=== PATIENT | male | born 1955 | race Caucasian/White ===

== ENCOUNTER 2019-06-07 09:21 | Outpatient (CLI) | payer OTHER, SELFPAY ==
[2019-06-07 11:57] LABS: ALT 34 U/L (16-63); AST 18 U/L (15-37); Albumin 3.6 g/dL (3.4-5.0); Alkaline Phosphatase 147 U/L (46-116); Anion Gap 9.2 mmol/L (3-11); BUN 14 mg/dL (7-18); Bilirubin, Total 0.3 mg/dL (0.2-1.0); CO2 28.8 mmol/L (21.0-32.0); CREATININE 0.49 mg/dL (0.70-1.30); Calcium 8.8 mg/dL (8.5-10.1); Calculated LDL 89 mg/dL (<100); Chloride 105 mmol/L (98-107); Cholesterol 174 mg/dL (<200); Glucose 107 mg/dL (74-106); HDL Cholesterol 72 mg/dL (40-60); Potassium 4.4 mmol/L (3.5-5.1); Sodium 143 mmol/L (136-145); Total Protein 6.5 g/dL (6.4-8.2); Triglyceride 65 mg/dL (<150)
[2019-06-08 12:28] LABS: PSA, Screening 1.2 ng/mL (0.0-4.5)
== END 2019-06-07 09:41 ==
PROVIDERS: PCP Family Medicine; Visit Provider Family Medicine
DX: R73.9 Hyperglycemia, unspecified (principal); N40.0 Benign prostatic hyperplasia without lower urinary tract symptoms; Z12.5 Encounter for screening for malignant neoplasm of prostate; Z13.220 Encounter for screening for lipoid disorders
CPT/HCPCS: 36415; 80053; 80061; 84153

== ENCOUNTER 2020-05-22 09:26 | Outpatient (CLI) | payer OTHER, SELFPAY ==
[2020-05-22 12:35] LABS: Anion Gap 7.6 mmol/L (3-11); BUN 11 mg/dL (7-18); CO2 29.4 mmol/L (21.0-32.0); CREATININE 0.6 mg/dL (0.70-1.30); Calcium 9.4 mg/dL (8.5-10.1); Chloride 103 mmol/L (98-107); Glucose 109 mg/dL (74-106); Potassium 4.5 mmol/L (3.5-5.1); Sodium 140 mmol/L (136-145)
[2020-05-22 12:54] LABS: Hemoglobin A1C 5.9 % (<5.7)
== END 2020-05-22 09:27 | disposition home or self-care (01) ==
LOC: LOS 09:27
PROVIDERS: PCP Family Medicine; Visit Provider Family Medicine
DX: R73.9 Hyperglycemia, unspecified (principal)
CPT/HCPCS: 36415; 80048; 83036

== ENCOUNTER 2021-03-19 01:58 | Outpatient (CLI) | payer OTHER, SELFPAY ==
[2021-03-19 13:36] LABS: Source Nasal/Nares
[2021-03-19 19:27] LABS: COVID-19 PCR Negative (Negative)
== END 2021-03-19 01:59 | disposition home or self-care (01) ==
LOC: LBO 01:58
PROVIDERS: PCP Family Medicine; Visit Provider Surgery
DX: Z20.822 Contact with and (suspected) exposure to COVID-19 (principal); Z01.818 Encounter for other preprocedural examination
CPT/HCPCS: 87635

== ENCOUNTER 2021-03-21 06:04 | Day surgery (SDC) | payer OTHER, SELFPAY ==
--- NOTE | 2021-03-21 06:16 | W.ANESPRE ---
General Info Date of Service Date Performed: 03/21/21 Height: 5 ft 6 in Weight: 83.688 kg Body Mass Index (BMI): 29.7 Surgical Procedure: Operation Date: 03/21/21 07:40 Proposed Procedures Side Surgeon p Herniorrhaphy Inguinal w/Mesh Left Pilar Krueger MD Meds Allergies and Home Medications Allergies Allergy/AdvReac Type Severity Reaction Status Date / Time codeine AdvReac Intermediate NAUSEA Verified 03/21/21 06:36 Home Medication Medication Instructions Recorded cholecalciferol (vitamin D3) 1 tab PO DAILY 04/18/14 [Vitamin D3] vitamin B complex 1 tab PO DAILY 04/18/14 vitamin E 400 unit PO DAILY 04/18/14 zinc 50 mg PO DAILY 04/18/14 triamcinolone acetonide 15 gm TOPICAL BID #1 script 07/23/17 Current Visit Medications: Current Medications Generic Name Dose Route Start Last Admin Trade Name Freq PRN Reason Stop Dose Admin Acetaminophen 1,000 mg 03/21/21 06:00 Acetaminophen 500 Mg Tab PO 03/21/21 23:59 PREOP SONNY Celecoxib 200 mg 03/21/21 06:00 Celecoxib 200 Mg Cap PO 03/21/21 23:59 PREOP SONNY Gabapentin 600 mg 03/21/21 06:00 Gabapentin 300 Mg Cap PO 03/21/21 23:59 PREOP SONNY Ringer's Solution 1,000 mls @ 80 mls/hr 03/21/21 06:00 IV 04/19/21 23:59 INFUSION SONNY Cefazolin Sodium/Dextrose 2 gm in 50 mls @ 100 mls/hr 03/21/21 06:00 Ancef Duplex IVPB 03/21/21 23:59 PREOP SONNY IV Miscellaneous Supplies 1 each 03/21/21 06:00 Iv Access IV 04/19/21 23:59 DIRECTED SONNY Sodium Chloride 0 ml 03/21/21 06:00 Normal Saline Flush 10 Ml Syr IV 04/19/21 23:59 PRN PRN Sodium Chloride 0 ml 03/21/21 06:00 Normal Saline 10 Ml Vial IJ 04/19/21 23:59 DIRECTED PRN Sterile Water 0 ml 03/21/21 06:00 Water,Injection,Sterile 10 Ml Vial IJ 04/19/21 23:59 DIRECTED PRN PFSH Active Problems Active Problems: Problem Status Onset Code Left inguinal hernia K40.90 High blood sugar R73.9 Encounter for immunization Z23 Annual visit for general adult medical examination without abnormal findings Z00.00 Status post de Quervain's release surgery Z98.890 Status post repair of hydrocele Z98.890, Z87.438 Colon cancer screening Z12.11 Medical History Medical History De Quervain's fracture Tubular adenoma of colon (04/12/16) Surgical History Surgical History Colonoscopy - MAC (04/12/16) Hernia repair right inguinal hernia 05/2017 PROCEDURES EXCISION OF HYDROCELE, 2007 Release for de Quervain's tenosynovitis of hand 04/20/14; RIGHT Tobacco Smoking/Tobacco Use Status: Current every day Tobacco Type: cigarettes Tobacco: How many years used: 40 Passive smoking exposure: Yes Quit Status: considering quitting Second hand exposure: Yes Alcohol Alcohol Intake: current Alcohol intake frequency: a few times a week Alcohol type: beer and wine Substance Use Substance use: Occasionally Substance use type: marijuana Vital Signs and Lab Results Vital Signs Most Recent Vital Signs in EMR: Temp Pulse Resp BP Pulse Ox 37.3 C 92 H 16 124/82 94 03/21/21 06:42 03/21/21 06:42 03/21/21 06:42 03/21/21 06:42 03/21/21 06:42 Lab Results Blood Type / Crossmatch: No Data to Display Complete Blood Count: No Data to Display Complete Metabolic Panel: No Data to Display Liver Function Panel: No Data to Display Coagulation Panel: No Data to Display Cardiac Panel: No Data to Display Arterial Blood Gas: No Data to Display Venous Blood Gas: No Data to Display Pancreas Panel: No Data to Display Thyroid Panel: No Data to Display Infectious Disease: Coronavirus (COVID-19)(PCR) Negative (Negative) 03/19/21 11:35 03/19/21 Coronavirus 2019 Source Nasal/Nares 03/19/21 11:35 03/19/21 Blood Cultures: No Data to Display Toxicology Panel: No Data to Display Anesthesia Assessment and Plan Anesthesia History Personal History: No History of Anesthesia Complications Family History: No Family History of Anesthesia Complications Exercise Tolerance Exercise Tolerance: Metabolic Equivalents>4 (Hikes 2 x per day, elliptical 2x per week) Pertinent Negatives Pertinent Negatives: No Symptoms of GERD, No Major Cardiovascular Symptoms or Complaints, No Major Pulmonary Symptoms or Complaints and No History of CVA/TIA Cardiac & Pulmonary Exam Cardiac Exam: Normal S1/S2 Heart Sounds Pulmonary Exam: Clear Bilateral Breath Sounds Implantable Cardiac Device Does patient have a Pacemaker or an ICD?: No Airway Exam Known Difficult Airway: No Mallampati Class: 2 Mouth Opening: Normal (> 3cm) Thyromental Distance: Greater than 3 cm Facial Hair: Full Torres Neck Range of Motion: Full ROM Neck Circumference: Normal Teeth Condition: Normal Dentition ASA Classification ASA Score: ASA 2 Emergency Case?: No NPO Status NPO Status: NPO Clears >2 hours, Solids >8 hours Anesthesia Plan Resuscitation Status: Full Code Anesthesia Technique: General Anesthesia Airway Planned: LMA Pain Management: Surgeon and patient request nerve block Monitors Used: Standard Monitors Preoperative Comments:: 65 yo male with left inguinal hernia here for repair. Sig PMHx: smoker x 40 years (tobacco/cannabis weekly), occ ETOH, denies major health issues. Previous Anes: LMA 4.
--- NOTE | 2021-03-21 06:33 | ROE_ITS ---
Date of service: 03/21/21 Time of Service: 08:21 Operative Note Operative Note DATE OF PROCEDURE: 03/21/21 PRE-OP DIAGNOSIS: Left inguinal hernia Left direct and indirect inguinal hernia PROCEDURE: Left inguinal hernia repair with mesh SURGEON: Pilar Krueger SIPHON OPERATOR: Wilda Mccracken ANESTHESIA TYPE: General:No Airway (Garcia Nicolas CRNA) and Primary Nerve Block Refer to Anesthesia Record ESTIMATED BLOOD LOSS: 15 PATHOLOGY: none sent COMPLICATIONS: None Patient was transported to: PACU Patient's condition: stable Implants: Bard Mesh: LOT- [id number] REF- [id number] 2025-03-27 Indications: Leonel is back to see me to discuss a left inguinal hernia repair. He has done well with his right inguinal repair which was done in 2018. He has some mild discomfort. This is his downtime when he is not doing a lot of lifting or outdoor work. We discussed the surgery and its risks. We also discussed Covid testing prior to the procedure. Risks, benefits and complications have been reviewed. Complications include but are not limited to bleeding, infection, injury to vas, vessels and nerves, injury to bowel and adverse reaction to medications. Questions were entertained and answered to their satisfaction and they wished to proceed. Proceed with left inguinal hernia repair with mesh Findings: Indirect and direct hernia Procedure Description: After informed concent was obtained the patient was taken to the operating room and placed in a supine position. Monitors and SCDs were applied and a timeout was done. The patient's name, date of , procedure type, procedure site, allergies to medications, preoperative antibiotic, and DVT prophylaxis were all reviewed. Fire risk was assessed. Next anesthesia did a tap block on the left side under ultrasound guidance. Please see their separate dictation. Once anesthesia was done the abdomen was prepped and draped in a sterile surgical fashion. 0.5% Marcaine mixed with exparel was injected into the dermis in the left lower quadrant. An incision was made with a 10 blade in the left lower quadrant. Dissection was done with cautery through the subcutaneous tissues and Jossue's fascia down to the external oblique fascia. The external ring was identified and the external oblique fascia was opened sharply through the external ring. The cut fascia was grasped with hemostats the cord structures were identified and a Anette drain was placed around them. The ilioinguinal nerve was identified and cut. The cremasteric muscle was dissected away from the cord structures using both cautery and blunt dissection. A hernia sac was identified and removed from the cord structures using blunt dissection. The hernia sac was pushed back into the peritoneum. A 6x6 mesh was cut in half. One half was cut in thirds and a plug was created. The plug was placed into the indirect defect and secured with 2-0 proline. The second piece of mesh was cut to the right shape and size, and then attached to the lacunar ligament using a 2-0 Prolene double armed suture. The mesh was secured laterally and medially with a 2-0 Prolene, with a running suture. The tails of the mesh were wrapped around the cord structures effectively cinching down the internal ring. Once the mesh was secured the tissues were irrigated with some normal saline. No bleeding was identified. The external oblique fascia was reapproximated using 2-0 Vicryl running suture. The Jossue's fascia was reapproximated using interrupted 3-0 Vicryl. The dermis was reapproximated with a running 4-0 Vicr yl. The skin was cleaned and dried and skin affix was applied. The patient was woken up and taken back to recovery in stable condition. There were no immediate complications. Sponge, instrument and needle counts were correct at the end of the case x2.
--- NOTE | 2021-03-21 06:34 | PDOC.DSDIS_ITS ---
Discharge Plan Disposition Patient Disposition: HOME Condition: Good Discharge Details Reason For Visit: Left inguinal hernia repair Attending Provider: Pilar Krueger Primary Care Provider: Kevin Gonzalez Home Meds and New Rx's Prescriptions: Continued triamcinolone acetonide 15 GM cream 15 gm Topical BID Qty: 1 RF: 2 zinc 50 MG tablet 50 mg PO DAILY RF: 0 cholecalciferol (vitamin D3) [Vitamin D3] 400 UNIT tablet 1 tab PO DAILY RF: 0 vitamin E 400 UNIT capsule 400 unit PO DAILY RF: 0 vitamin B complex 1 EACH capsule 1 tab PO DAILY RF: 0 Discharge Instructions Instructions: Inguinal Hernia Repair (DC) Additional Instructions: Activity at Home after surgery: 1. Make sure you walk outside at least 4 times per day 2. You should be able to climb a flight of stairs 3. No driving while in pain or taking pain medications 4. No strenuous activity or heavy lifting for 4 weeks (open surgery) Diet, Nutrition, & wound healin. Avoid alcohol until after you are recovered from your surgery 2. Make sure to eat plenty of lean protein (meat, fish, eggs, cottage cheese, beans) 3. Eat a variety of fruits and vegetables. Eat plenty of high fiber foods to avoid constipation. 4. Drink plenty of liquids to stay hydrated and avoid constipation Pain Medications: 1. Tylenol 650mg every 6 hours as needed and Ibuprofen 600 mg every 6 hours as needed. You may alternate between the 2 medications every 3 hours 2. If a narcotic has been prescribed take as directed only for breakthrough pain For Constipation: 1. Take Milk of Magnesia or MiraLax as needed for constipation Other: 1. You may shower daily. Do not scrub the incisions 2. Do not soak the incisions for 1 week 3. You may alternate ice and heat as needed for pain and swelling Wound Care: 1. Keep the incisions clean and dry Please call our office if you develop: 1. Fevers >101.5 2. Nausea or Vomiting 3. Worsening pain 4. Redness and thick discharge from the wounds If after hours please call the Hospital at and ask to speak to the on-call surgeon Referrals: Wilda Mccracken PA [[employer] OPERATIONS MANAGER] - 04/05/21 11:30 am Activity:: see above Remove Dressings/Wound Care:: Do Not Remove Shower/Bathe:: 24 hours Diet:: As Tolerated Discharge Orders Discharge Orders: Discharge Order (Routine); Ordered 03/21/21 Ordered By: Pilar Krueger
[2021-03-21 06:42] VITALS: BP 124/82; PULSE 92; RESP 16; TEMP 37.3; O2SAT 94
[2021-03-21] MEDS: Acetaminophen 500 MG TAB 1000 MG PO (06:53)
[2021-03-21] MEDS: Gabapentin 300 MG CAP 600 MG PO (06:53)
[2021-03-21] MEDS: Celecoxib 200 MG CAP PO (06:53)
[2021-03-21] MEDS: Lactated Ringers 1,000 ML 80 ML IV (07:05)
[2021-03-21 07:12] VITALS: BMI 29.7
[2021-03-21] MEDS: ceFAZolin 2 GM/50 ML BAG IVPB (07:24)
--- NOTE | 2021-03-21 07:49 | W.ANESNERVE ---
Nerve Block Single Injection Procedure Date and Time Date Performed: 03/21/21 Procedure Start: 07:32 Location Where Procedure Performed Procedure Location: Operating Room Procedure Stop: 07:38 Reason Performed: Postoperative Analgesia Requesting Provider: Pilar Krueger Timeout Performed Timeout Performed: Yes Monitoring Used ECG, Blood Pressure, SpO2 and ETCO2 Sterility Sterility: Hand Hygiene, Surgical Cap, Surgical Mask and Sterile Gloves Sedation Given During Procedure Sedation Given (Indicate Dose Given): No Sedation given Patient Mental Status Patient Mental Status: Performed under general anesthesia Nerve Block 1st Nerve Block: Laterality: Left Block Type: TAP Unilateral Needle / Catheter Used: 100mm SonoPlex II Local Anesthetic Bolus (Indicate Dose Given): None, Bupivacaine 0.375% Dose:: 30 and Exparel Dose:: 10 mL Additives (Indicate Dose Given): None Ultrasound: Sterile probe cover and gel used Ultrasound Image Saved?: Yes Nerve Stimulator: Not Used Paresthesia: None Procedure Tolerated: No Complications Procedure Outcome: Successful Performed By: Garcia Nicolas
[2021-03-21] MEDS: Bupivacaine LIPOSOME/PF 133 MG/10 ML VIAL IJ (08:15)
[2021-03-21] MEDS: Bupivacaine 0.25% Pres-Free 30 ML VIAL (08:15)
[2021-03-21 08:36] VITALS: BP 131/77; PULSE 86; RESP 16; TEMP 36.6; O2SAT 98
[2021-03-21 08:41] VITALS: BP 152/86; PULSE 88; RESP 18; TEMP 36.6; O2SAT 98
[2021-03-21 08:46] VITALS: BP 134/91; PULSE 88; RESP 17; TEMP 36.6; O2SAT 97
[2021-03-21 09:00] VITALS: BP 140/92; PULSE 79; RESP 16; TEMP 36.3; O2SAT 95
[2021-03-21 09:30] VITALS: BP 136/92; PULSE 82; RESP 16; TEMP 36.2; O2SAT 94
--- NOTE | 2021-03-21 09:49 | W.ANESPOSTOP ---
Postoperative Evaluation Date, Time and Location Date Performed: 03/21/21 Time Performed: 09:45 Patient Location: Day Surgery Unit Vital Signs Most Recent Imported Vital Signs: Most Recent Vital Signs Temp Pulse Resp BP Pulse Ox 36.3 C L 79 16 140/92 H 95 03/21/21 09:00 03/21/21 09:00 03/21/21 09:00 03/21/21 09:00 03/21/21 09:00 Pain Score Most Recent Pain Score: Most Recent Pain Score Pain Level 0 03/21/21 09:00 Assessment Mental Status: Awake (Alert & Oriented to Patient Baseline) Airway and Respiratory Function: Patent airway with normal (patient baseline) respiratory exam Cardiovascular Function: Hemodynamically Stable Hydration Status: Adequately Hydrated Nausea & Vomiting: No Nausea or Vomiting Pain: Pt. Denies Any Pain Peripheral Nerve Block: Regional nerve block not resolved at time of post operative discharge
== END 2021-03-21 11:00 | disposition home or self-care (01) ==
PROVIDERS: PCP Family Medicine; Visit Provider Surgery
PROC: (CPT 49505; principal; 2021-03-21 07:30)
DX: K40.90 Unilateral inguinal hernia, without obstruction or gangrene, not specified as recurrent (principal); R73.9 Hyperglycemia, unspecified; F17.210 Nicotine dependence, cigarettes, uncomplicated
CPT/HCPCS: 49505; 76942; C1781; J0690; J1100; J1885; J2405; J2704

== ENCOUNTER 2021-08-01 09:18 | Day surgery (SDC) | payer OTHER, SELFPAY ==
--- NOTE | 2021-08-01 07:12 | W.COLOREPORT ---
Colonoscopy Report Date of procedure: 08/01/21 Pre-op diagnosis general: Colon Cancer Screening and hx of polyps Post-op diagnosis procedure note: other (polyps and diverticulosis) Procedure: Colonoscopy with polypectomy Surgeon: iPlar Krueger Anesthesia Type: General:No Airway Estimated blood loss (mL): 3 Pathology: other (ascending, descending and rectal polyp) Complications: None Disposition: same day Indications: The patient is here for Colonoscopy pre-op.??His last screening was in 2017, which was remarkable for tubular adenomatous polyp and hyperplastic polyp.?He has no family history of colon cancer. He has not had any bowel habit changes. -Discussed colonoscopy bowel prep as well as the procedure. Discussed possible complications of the procedure to include bleeding, pain, perforation, missed small lesion/polyp, sore throat, aspiration and adverse reaction to the medications. Questions were answered to patient?s satisfaction. No guarantees were implied or given.? Prep: Miralax/Dulcolax Procedure Start Time: 11:29 Procedure End Time: 11:53 Retraction Time: 15 minutes Findings: 3 small polyps mild diverticulosis Procedure Description: After informed consent was obtained the patient was taken to the procedure room and placed in a left decubitous position. Monitors were applied and a time out was done. The patients name, date of , procedure, allergies to medications and metal in their body was reviewed. The patient was then sedated. Once sedated and comfortable a rectal exam was done. External exam was normal. Internal exam revealed a normal sphincter tone and no palpable masses. The prostate felt smooth. The scope was then introduced and retro-flexed. No internal hemorrhoids, polyps or masses were identified on retro-flexion. The scope was then advanced to the cecum without difficulty. The ileocecal vlave and appendiceal orifice were identified. The prep was good. The scope was then slowly retracted over 15 minutes back into the rectum. Polyps were removed with cold forceps in the ascending colon, descending colon and rectum. There was mild descending and sigmoid diverticulosis noted. The scope was removed and the patient was woken up and taken back to Same day surgery in stable condition. The patient tolerated the procedure well and there were no immediate complications. Follow up: The patient should follow up in 3-5 years unless they develop changes in bowel habits or other new gastrointestinal complaints.
--- NOTE | 2021-08-01 07:13 | W.PM.DSUDISC ---
Discharge Plan Disposition Patient Disposition: HOME Condition: Good Discharge Details Reason For Visit: Colonoscopy Attending Provider: Pilar Krueger Primary Care Provider: Kevin Gonzalez Home Meds and New Rx's Prescriptions: Continued garlic 500 mg capsule 500 mg PO DAILY 0RF triamcinolone acetonide 15 GM cream 15 gm Topical BID Qty: 1 2RF Rx Instructions: local application on chest in thin layer twice a day until the rash is gone zinc 50 MG tablet 50 mg PO DAILY 0RF cholecalciferol (vitamin D3) [Vitamin D3] 400 UNIT tablet 1 tab PO DAILY 0RF vitamin E 400 UNIT capsule 400 unit PO DAILY 0RF vitamin B complex 1 EACH capsule 1 tab PO DAILY 0RF Discharge Instructions Instructions: Diverticulosis (DC) Additional Instructions: Findings: 3 small polyps Diverticulosis Follow up: 3-5 years Please call if you develop: fevers >101.5 Nausea or Vomiting Abdominal pain that is not transient Rectal bleeding that is more then a tbsp A hard abdomen and inability to pass gas DAY SURGERY UNIT POST ENDOSCOPY INSTRUCTIONS Instructions for everyone who is given Anesthesia: For your safety, please do the following for the next 24 Hours: a. Do not drive or operate dangerous equipment b. Do not drink alcohol beverages or use any recreational drugs for the first 24 hours or while taking pain medications. The medications in your body may have a reaction that can be dangerous. c. Do not make any important decisions or sign any important papers 1. Generally there are no restrictions on your activity after a day or so has gone by, but you may feel a bit fatigued for a few days. 2. After you arrive home you may have a light meal and return to a normal diet as you can tolerate it without feeling sick to your stomach. 3. After surgery, you may feel pain or discomfort. This should be only transient, but if it persists please contact your doctor. 4. If there are any questions regarding the findings of your procedure, please feel free to contact your doctor. 6. If you are unable to contact your doctor with a problem, contact the hospital at [phone]. 7. Continue all your regular medications unless directed otherwise. I understand the above instructions and have no questions. Signature of Patient or Responsible Adult Escort Date/Time Name of Responsible Adult Escort Signature of Nurse Date/Time Activity:: Activity as Tolerated Diet:: high fiber Discharge Orders Discharge Orders: Discharge Order (Routine); Ordered 08/01/21 Ordered By: Pilar Krueger
[2021-08-01 09:25] VITALS: BP 124/87; PULSE 88; RESP 17; TEMP 36.5; O2SAT 97
--- NOTE | 2021-08-01 09:42 | W.ANESPRE ---
General Info Date of Service Date Performed: 08/01/21 Height: 5 ft 6 in Weight: 84.085 kg Body Mass Index (BMI): 29.9 Surgical Procedure: Operation Date: 08/01/21 11:05 Proposed Procedure Side Surgeon p Colonoscopy Pilar Krueger MD Meds Allergies and Home Medications Allergies Allergy/AdvReac Type Severity Reaction Status Date / Time codeine AdvReac Intermediate NAUSEA Verified 08/01/21 09:40 Home Medication Medication Instructions Recorded cholecalciferol (vitamin D3) 10 1 tab PO DAILY 04/18/14 mcg (400 unit) tablet (Vitamin D3) vitamin B complex 1 tab PO DAILY 04/18/14 vitamin E 400 unit capsule 400 unit PO DAILY 04/18/14 zinc 50 mg tablet 50 mg PO DAILY 04/18/14 triamcinolone acetonide 0.1 % 15 gm TOPICAL BID #1 script 07/23/17 topical cream garlic 500 mg capsule 500 mg PO DAILY 07/05/21 Current Visit Medications: Current Medications Generic Name Dose Route Start Last Admin Trade Name Freq PRN Reason Stop Dose Admin Hyoscyamine Sulfate 0.125 mg 08/01/21 07:13 Hyoscyamine 0.125 Mg Sl/Oral/Chew SL DIRECTED PRN Ringer's Solution 1,000 mls @ 80 mls/hr 08/01/21 06:00 IV 08/30/21 23:59 INFUSION SONNY IV Miscellaneous Supplies 1 each 08/01/21 06:00 Iv Access IV 08/30/21 23:59 DIRECTED SONNY Ondansetron HCl 4 mg 08/01/21 07:13 Ondansetron 4 Mg/2 Ml Vial IVP Q4H PRN PRN Nausea / Vomiting Sodium Chloride 0 ml 08/01/21 06:00 Normal Saline Flush 10 Ml Syr IV 08/30/21 23:59 PRN PRN Sodium Chloride 0 ml 08/01/21 06:00 Normal Saline 10 Ml Vial IJ 08/30/21 23:59 DIRECTED PRN Sterile Water 0 ml 08/01/21 06:00 Water,Injection,Sterile 10 Ml Vial IJ 08/30/21 23:59 DIRECTED PRN PFSH Active Problems Active Problems: Problem Status Onset Code Colon cancer screening Z12.11 Medical History Medical History Annual visit for general adult medical examination without abnormal findings De Quervain's fracture Encounter for immunization High blood sugar Left inguinal hernia Tubular adenoma of colon (04/12/16) Medical History Comments:: weekly cannibus use Surgical History Surgical History Colonoscopy - MAC (04/12/16) Hernia repair right inguinal hernia 05/2017 PROCEDURES EXCISION OF HYDROCELE, 2007 Release for de Quervain's tenosynovitis of hand 04/20/14; RIGHT Status post de Quervain's release surgery Status post repair of hydrocele Tobacco Smoking/Tobacco Use Status: Current every day Tobacco Type: cigarettes Passive smoking exposure: Yes Second hand exposure: Yes Alcohol Alcohol Intake: current Alcohol intake frequency: a few times a week Alcohol type: beer and wine Substance Use Substance use: Occasionally Substance use type: marijuana Vital Signs and Lab Results Lab Results Blood Type / Crossmatch: No Data to Display Complete Blood Count: No Data to Display Complete Metabolic Panel: No Data to Display Liver Function Panel: No Data to Display Coagulation Panel: No Data to Display Cardiac Panel: No Data to Display Arterial Blood Gas: No Data to Display Venous Blood Gas: No Data to Display Pancreas Panel: No Data to Display Thyroid Panel: No Data to Display Infectious Disease: No Data to Display Blood Cultures: No Data to Display Toxicology Panel: No Data to Display Anesthesia Assessment and Plan Anesthesia History Personal History: No History of Anesthesia Complications Family History: No Family History of Anesthesia Complications Exercise Tolerance Exercise Tolerance: Metabolic Equivalents>4 (Hikes 2 x per day, elliptical 2x per week) Pertinent Negatives Pertinent Negatives: No Symptoms of GERD, No Major Cardiovascular Symptoms or Complaints, No Major Pulmonary Symptoms or Complaints and No History of CVA/TIA Cardiac & Pulmonary Exam Cardiac Exam: Normal S1/S2 Heart Sounds Pulmonary Exam: Clear Bilateral Breath Sounds Implantable Cardiac Device Does patient have a Pacemaker or an ICD?: No Airway Exam Known Difficult Airway: No Mallampati Class: 2 Mouth Opening: Normal (> 3cm) Thyromental Distance: Greater than 3 cm Facial Hair: Full Torres Neck Range of Motion: Full ROM Neck Circumference: Normal Teeth Condition: Normal Dentition ASA Classification ASA Score: ASA 2 Emergency Case?: No NPO Status NPO Status: NPO Clears >2 hours, Solids >8 hours Anesthesia Plan Resuscitation Status: Full Code Anesthesia Technique: General Anesthesia Airway Planned: Natural Airway Monitors Used: Standard Monitors
[2021-08-01] MEDS: Lactated Ringers 1,000 ML 80 ML IV (10:00)
[2021-08-01 10:20] VITALS: BMI 29.9
--- NOTE | 2021-08-01 11:31 | BOWEL_PTH ---
PATIENT: Leonel Moreno LOC: [facility] U#:[id number] AGE/SX: 66/M ROOM: RE08/01/[address]: Pilar Krueger MD : [id number] BED: DIS: 08/01/2021 SPEC #: [id number] RECD: 08/01/21 15:29 STATUS: CHACORTA RE #: [id number] IRLANDA: 08/01/21 11:[address]: Pilar Krueger DEPT: Surgical Specimen RECD BY: Dayana Chan ENTERED: 08/01/21 15:32 SP TYPE: Bowel OTHR DR: Kevin Gonzalez Tissues: 1 - BIOPSY BOWEL 2 - BIOPSY BOWEL 3 - BIOPSY BOWEL Procedures: GROSS AND MICRO LEVEL 4 Comments: [id number]
[2021-08-01 11:58] VITALS: BP 126/81; PULSE 101; RESP 18; TEMP 36.3; O2SAT 98
[2021-08-01 12:30] VITALS: BP 120/88; PULSE 87; RESP 16; TEMP 36.5; O2SAT 98
--- NOTE | 2021-08-01 12:56 | W.ANESPOSTOP ---
Postoperative Evaluation Date, Time and Location Date Performed: 08/01/21 Time Performed: 12:50 Patient Location: Day Surgery Unit Vital Signs Most Recent Imported Vital Signs: Most Recent Vital Signs Temp Pulse Resp BP Pulse Ox 36.5 C 87 16 120/88 98 08/01/21 12:30 08/01/21 12:30 08/01/21 12:30 08/01/21 12:30 08/01/21 12:30 Pain Score Most Recent Pain Score: Most Recent Pain Score Pain Level 0 08/01/21 12:30 Assessment Mental Status: Awake (Alert & Oriented to Patient Baseline) Airway and Respiratory Function: Patent airway with normal (patient baseline) respiratory exam Cardiovascular Function: Hemodynamically Stable Hydration Status: Adequately Hydrated Nausea & Vomiting: No Nausea or Vomiting Pain: Pt. Denies Any Pain Peripheral Nerve Block: Patient did not receive a nerve block
== END 2021-08-01 13:00 | disposition home or self-care (01) ==
LOC: SUR 09:18
PROVIDERS: PCP Family Medicine; Visit Provider Surgery
PROC: 0DJD8ZZ Inspection of Lower Intestinal Tract, Via Natural or Artificial Opening Endoscopic (ICD-10-PCS; CPT 45378; principal; 2021-08-01 11:00)
DX: Z12.11 Encounter for screening for malignant neoplasm of colon (principal); K63.5 Polyp of colon; K57.30 Diverticulosis of large intestine without perforation or abscess without bleeding; F17.210 Nicotine dependence, cigarettes, uncomplicated; R73.9 Hyperglycemia, unspecified
CPT/HCPCS: 45380; 88305

== ENCOUNTER 2022-03-13 09:50 | Outpatient (CLI) | payer OTHER, SELFPAY ==
[2022-03-13 09:30] LABS: Calculated LDL 88 mg/dL (<100); Cholesterol 185 mg/dL (<200); HDL Cholesterol 90 mg/dL (40-60); Triglyceride 38 mg/dL (<150)
[2022-03-13 09:33] LABS: Hemoglobin A1C 5.6 % (<5.7)
== END 2022-03-13 09:51 | disposition home or self-care (01) ==
PROVIDERS: PCP Nurse Practitioner Family; Visit Provider Nurse Practitioner Family
DX: R73.9 Hyperglycemia, unspecified (principal); Z13.220 Encounter for screening for lipoid disorders
CPT/HCPCS: 36415; 80061; 83036

== ENCOUNTER → 2023-01-07 01:03 | Outpatient (CLI) | payer MEDICARE, SELFPAY ==
--- NOTE | 2023-01-07 06:45 | DI.CTLCSR_ITS ---
Exam(s) CT CHEST LUNG CANCER SCREEN EXAM: CT CHEST LUNG CANCER SCREEN CLINICAL HISTORY: Screening for lung cancer,former smoker, z87.891 TECHNIQUE: Imaging Protocol: Axial computed tomography images with coronal and sagittal reformatted images were created and reviewed COMPARISON: CT CT CHEST LUNG CANCER SCREEN from 12/12/2021 FINDINGS: Tracheobronchial tree: Patent where visualized. Pulmonary parenchyma: Moderate centrilobular emphysematous changes are present. There is mild scarri ng seen in the right lower lobe. Lung Nodules: There is a stable 6 x 4 mm nodule in the lateral aspect of the left lingula. (Series 6 , image 469). There is a stable 5 mm nodule in the lateral aspect of the right middle lobe. (Series 6, image 502). There is a stable 7 mm nodule in the posterior lateral aspect of the right lower lob e. (Series 6, image 439). No new pulmonary nodules are present. No focal consolidating infiltrates are seen. Mediastinum and Crista: No dominant adenopathy or fluid collection. The esophagus is unremarkable. Thyroid gland: Unremarkable. Lymph nodes: Unremarkable. Pleura: No effusion or pneumothorax. Heart: The heart is not dilated. Single-vessel coronary artery calcification is present. No pericard ial effusion. Aorta: Thoracic aorta non-dilated.Atherosclerosis is present. Upper abdomen: Unremarkable. Soft Tissues: Unremarkable. Bones: Within normal limits for the patient's age. IMPRESSION: Stable pulmonary nodules. No new pulmonary nodules. Lung RADS Cat 2 - Benign Appearance / Behavior: Nodules with a very low likelihood of becoming a clin ically active cancer due to size or lack of growth Lung-RADS 1.0 CATEGORIES: Category 0 - Prior chest CT exam(s) being located for comparison. Category 1 - Annual screening in 12 months. No nodules or definitely benign nodules. Category 2 - Annual screening in 12 months. Benign appearance. Nodules with low likelihood of becomin g active cancer. Category 3 - 6-month follow-up. Probably benign. Short-term follow-up suggested. Nodules with low lik elihood of becoming active cancer. Category 4A - 3-month follow-up and CT/PET if >8 mm in size. Suspicious finding. Findings which requi re additional testing. Category 4B - Findings which require additional testing and tissue sampling. Suspicious finding. Category 4X - Category 3 or 4 nodules with additional features or imaging findings that increases the suspicion of malignancy. Modifier S- Potentially clinically significant finding. (Non lung cancer) RADIATION DOSE DELIVERED: Total DLP Total DLP DATA REPOSITORY: All CT scans at this facility are submitted to the National Radiology Data Registry (NRDR) Dose Index Registry (DIR) with the [employer] (ACR). RADIATION OPTIMIZATION: All CT scans at this facility use at least one of these dose optimization te chniques: automated exposure control; mA and/or kV adjustment per patient size (includes targeted exa ms where dose is matched to clinical indication); or iterative reconstruction.
== END ==
PROVIDERS: PCP Nurse Practitioner Family; Visit Provider Nurse Practitioner Family
DX: Z87.891 Personal history of nicotine dependence (principal); Z12.2 Encounter for screening for malignant neoplasm of respiratory organs; R91.1 Solitary pulmonary nodule
CPT/HCPCS: 36415; 71271; 80053; 84153; 85027; 86803; 82977

== ENCOUNTER 2023-01-07 02:57 | Outpatient (CLI) | payer MEDICARE, SELFPAY ==
[2023-01-07 11:35] LABS: HCT 45.1 % (40.0-50.0); HGB 15.6 g/dL (13.5-17.5); MCH 32.6 pg (27.0-33.0); MCHC 34.6 % (32.0-36.0); MCV 94 fL (80-95); MPV 9.2 fL (8.0-11.0); Platelet Count 263 10^3/uL (130-400); RBC 4.78 10^6/uL (4.36-5.78); RDW-SD 45.2 fL; WBC 10.27 10^3/uL (4.4-10.8)
[2023-01-07 12:51] LABS: ALT 52 U/L (16-63); AST 30 U/L (15-37); Albumin 3.9 g/dL (3.4-5.0); Alkaline Phosphatase 175 U/L (46-116); Anion Gap 10.2 mmol/L (3-11); BUN 14 mg/dL (7-18); Bilirubin, Total 0.4 mg/dL (0.2-1.0); CO2 24.8 mmol/L (21.0-32.0); CREATININE 0.6 mg/dL (0.70-1.30); Calcium 9.4 mg/dL (8.5-10.1); Chloride 103 mmol/L (98-107); Estimated GFR 107.13 (mL/min/1.73m2); Glucose 113 mg/dL (74-106); Potassium 4.3 mmol/L (3.5-5.1); Sodium 138 mmol/L (136-145); Total Protein 7.2 g/dL (6.4-8.2)
[2023-01-07 22:03] LABS: GGT 50 U/L (15-85)
[2023-01-07 23:14] LABS: PSA, Screening 2.5 ng/mL (<=4.5)
[2023-01-08 10:45] LABS: Hepatitis C Ab w Rflx HCV PCR Negative (Negative)
[2023-01-10 14:12] LABS: Lab Add On Test DONE
== END 2023-01-07 02:58 | disposition home or self-care (01) ==
LOC: LBO 02:58
PROVIDERS: PCP Nurse Practitioner Family; Visit Provider Nurse Practitioner Family
DX: Z00.00 Encounter for general adult medical examination without abnormal findings (principal); Z87.891 Personal history of nicotine dependence; R74.8 Abnormal levels of other serum enzymes
CPT/HCPCS: 36415; 80053; 84153; 85027; 86803; 82977

== ENCOUNTER 2023-01-19 13:33 | Emergency (ER) | payer MEDICARE, SELFPAY ==
[2023-01-19 13:46] VITALS: BP 137/82; PULSE 78; RESP 18; TEMP 37; O2SAT 97
[2023-01-19] MEDS: Normal Saline 1,000 ML 1000 ML IV (15:15)
--- NOTE | 2023-01-19 15:15 | DI.CT_ITS ---
Exam(s) CT ABDOMEN PELVIS W EXAM: CT ABDOMEN PELVIS W CLINICAL HISTORY: abd pain NVD. TECHNIQUE: Imaging Protocol: Axial computed tomography images with coronal and sagittal reformatted images were created and reviewed CONTRAST MATERIAL: Intravenous: Omnipaque-350 100cc Oral: None COMPARISON: CT CT CHEST LUNG CANCER SCREEN from 12/12/[address] CHEST LUNG CANCER SCREEN from 01/07/2023 FINDINGS: VISUALIZED LUNG BASES: Nodules in the right lung unchanged from 01/07/2023. See that prior report. ABDOMEN: There is no ascites. LIVER: Diffusely hypodense implying steatosis. There are no discrete focal hepatic lesions identifie d. No dilated intrahepatic ducts. GALLBLADDER/BILIARY: No obvious gallbladder pathology. CBD is not dilated. PANCREAS: No evidence of pancreatic mass nor dilatation of the pancreatic duct. SPLEEN: Spleen is not enlarged. No obvious intrasplenic lesions. Splenic and portal veins are paten t. ADRENALS: Thickening and nodularity of the lateral limb of the left adrenal gland is unchanged. Medi al limb of the left adrenal gland root unremarkable as do both limbs of the opposite-right adrenal gl and. KIDNEYS:Small sub cm benign cyst in the right kidney which does not require further imaging follow-up . No solid renal masses. No calculi nor hydronephrosis.. ABDOMINAL AORTA: Abdominal aorta is not enlarged. LYMPH NODES:There is no retroperitoneal nor paraaortic adenopathy. ABDOMINAL WALL: No evidence of significant anterior abdominal wall nor inguinal hernia. GI: The appearance of the duodenum and bowel loops probably reflects presence of enteritis. There is no bowel obstruction. There is no evidence of bowel obstruction, free air, nor abscess. : Contains fluid consistent with probable diarrhea state. The sigmoid is quite redundant and extends into the right-side of the abdomen. There abundant sigmoid diverticuli. No obvious acute diverticu litis. PELVIS: GI: No evidence of appendicitis.No evidence of sigmoid diverticulitis. LYMPH NODES: There is no intrapelvic nor inguinal adenopathy. REPRODUCTIVE: Prostate size normal. URINARY BLADDER: There is mild relatively uniform thickening of the urinary bladder wall. May indica te cystitis. No gas in the wall nor in the lumen of the nondistended urinary bladder. OSSEOUS: No fractures and no significant osseous lesions. Degenerative disc disease in lower lumbar spine. IMPRESSION: 1. Appearance of the duodenum and small bowel most probably reflects enteritis. There is no bowel ob struction. No free air. No abscess. No evidence of appendicitis. 2. Sigmoid diverticulosis. No obvious acute diverticulitis. Sigmoid is quite redundant reaches into the right-side of the abdomen 3. Uniformly thickened urinary bladder wall either due to cystitis or chronic obstruction. The prost ate size is upper normal-minimally prominent.. 4. Other findings as above. Discussed with ER provider. RADIATION DOSE DELIVERED: Total DLP DATA REPOSITORY: All CT scans at this facility are submitted to the National Radiology Data Registry (NRDR) Dose Index Registry (DIR) with the [employer] (ACR). RADIATION OPTIMIZATION: All CT scans at this facility use at least one of these dose optimization te chniques: automated exposure control; mA and/or kV adjustment per patient size (includes targeted exa ms where dose is matched to clinical indication); or iterative reconstruction.
[2023-01-19 15:19] LABS: Abs Immature Grans 0.05 10^3/uL (0.0-0.06); Absolute Basophil Count 0.03 10^3/uL (0.0-0.2); Absolute Eosinophil Count 0.01 10^3/uL (0.0-0.7); Absolute Lymphocyte Count 0.79 10^3/uL (1.2-3.4); Absolute Monocyte Count 0.76 10^3/uL (0.1-0.8); Basophils % 0.3; Eosinophils % 0.1; HCT 47.2 % (40.0-50.0); HGB 16.6 g/dL (13.5-17.5); Immature Grans % 0.4; Lymphocytes % 6.8; MCHC 35.2 % (32.0-36.0); MCV 94 fL (80-95); MPV 9.4 fL (8.0-11.0); Monocytes % 6.5; Neutrophils % 85.9; Platelet Count 292 10^3/uL (130-400); RBC 5.03 10^6/uL (4.36-5.78); RDW 12.6 % (11.8-14.1); RDW-SD 43.8 fL; WBC 11.64 10^3/uL (4.4-10.8)
--- NOTE | 2023-01-19 15:24 | ED.GENADUL_ITS ---
Discharge Plan Discharge Details Chief Complaint: Nausea/Vomit/Diar Primary Care Provider: Haydee Donahue ED Provider: Minor Fonseca Home Meds and New Rx's Prescriptions: No Action garlic 500 mg capsule 500 mg PO DAILY ibuprofen 600 mg tablet 600 mg PO QID PRN (Reason: pain) Qty: 90 1RF Hold Instructions: Changed by Provider Rx Instructions: take with food zinc 50 MG tablet 50 mg PO DAILY cholecalciferol (vitamin D3) [Vitamin D3] 400 UNIT tablet 1 tab PO DAILY vitamin E 400 UNIT capsule 400 unit PO DAILY vitamin B complex 1 EACH capsule 1 tab PO DAILY Medical Decision Making Patient presenting to the emergency department for chief complaint of nausea vomiting diarrhea. Patient states that around 2 AM he started with all of his symptoms that began with pretty sudden onset. Patient questions if this is possible foodborne illness but states nobody else in the home is sick with similar symptoms. He has not has had similar episodes in the past. Denies any fever chills and states mostly epigastric discomfort. Denies all other symptoms. Physical exam shows diffuse nonfocal tenderness with may be slightly more appreciated in the epigastrium but abdomen is otherwise soft nontender, no peritoneal findings, again noncontributory exam. Given patient's age and his report of severity of symptoms we will plan on checking labs urinalysis and CT. pending results will give patient fluids, Zofran, acetaminophen and Toradol. Reviewed patient's labs and CBC does show some leukocytosis otherwise nondiagnostic. Patient still pending additional labs. Pending additional labs and CT imaging patient signed out to Martina Suggs [employer] for review of labs and appropriate disposition Lab Data Lab results reviewed: Yes I reviewed the patient's lab results. HPI General Mode of arrival: ambulatory . Date/Time Provider Initiated Documentation: 01/19/23 14:25 . Limitations to Documentation: no limitations . Information obtained by: patient and RN notes reviewed . History of Present Illness 67 year old M presents to the emergency department with the chief complaint of Nausea vomiting diarrhea, described as moderate and severe, Quality is described as sharp, and is localized to the abdomen. Patient started experiencing this hour(s) (12) and it has been constant. No relieving factors improve symptom(s), Patient did receive the following treatments prior to arrival, none Related Data Home Medications Medication Instructions Recorded Confirmed cholecalciferol (vitamin D3) 10 1 tab PO DAILY 04/18/14 01/19/23 mcg (400 unit) tablet (Vitamin D3) vitamin B complex 1 tab PO DAILY 04/18/14 01/19/23 vitamin E 268 mg (400 unit) capsule 400 unit PO DAILY 04/18/14 01/19/23 zinc 50 mg tablet 50 mg PO DAILY 04/18/14 01/19/23 garlic 500 mg capsule 500 mg PO DAILY 07/05/21 01/19/23 ibuprofen 600 mg tablet 600 mg PO QID PRN pain #90 tabs 06/21/22 01/19/23 Previous Rx's Medication Instructions Recorded ibuprofen 600 mg tablet 600 mg PO QID PRN pain #90 tabs 06/21/22 Allergies Allergy/AdvReac Type Severity Reaction Status Date / Time codeine AdvReac Intermediate NAUSEA Verified 01/19/23 13:51 General Stated Complaint: Nausea/Vomit/Diar MEENU: 3 Review of Systems Constitutional Constitutional: Reports chills, Denies fever(s), Reports malaise and Reports poor appetite Cardiovascular Cardiovascular: Denies chest pain and Denies dyspnea Respiratory Respiratory: Denies cough and Denies dyspnea Gastrointestinal Gastrointestinal: Reports as per HPI, Reports abdominal pain, Denies melena, Denies change in bowel habits, Denies constipation, Reports diarrhea, Reports nausea and Reports vomiting Genitourinary Genitourinary: Denies hematuria, Denies difficulty urinating, Denies urinary hesitancy, Denies urinary incontinence and Denies urinary urgency Integumentary/Breasts Skin/Breast: Denies rash PFSH All Active Problems Elevated alkaline phosphatase level (Acute) Obesity (Chronic) Diverticulosis of colon (Chronic) Former cigarette smoker (Chronic) Medical History Tubular adenoma of colon Surgical History S/P colonoscopy S/P left inguinal hernia repair (03/21/21) S/P right inguinal hernia repair (05/29/17) Status post de Quervain's release surgery (04/20/14) Status post repair of hydrocele Family History Mother , 94 Depression Stroke Heart disease COPD (chronic obstructive pulmonary disease) Father , 94 Depression Prostate cancer Dementia Sister No problems noted. Sister No problems noted. Brother Prostate cancer Diabetes Brother No problems noted. Brother , 57 of [place] Alcohol use disorder Heart disease Myocardial infarction Maternal Grandfather , 58 Lung cancer Paternal Grandfather , 63 No problems noted. Maternal Grandmother , 95 No problems noted. Paternal Grandmother , 62 No problems noted. Social History Smoking/Tobacco Use Status: Former Tobacco Use tobacco type: cigarettes and pipe Quit Date: 07/01/21 Pack-years: 45 Tobacco: How many years used: 45 Second Hand Exposure: Yes Smoking risk assessment performed?: Yes Alcohol Intake: current Alcohol Intake frequency: a few times a week Alcohol type: beer Drug use: Occasionally Substance use type: marijuana Caregiver/Support person: No Household members: spouse Housing: house Communication Needs: None Do you need help understanding health information?: Never Pets and animals: Yes Pets and animals: dog(s), horse(s) and farm animals Sexually active: Yes Do you think of yourself as: straight/heterosexual Current gender identity: male What is your relationship status?: How often do you talk on the phone with friends or family?: three or more times per week How often do you get together with friends or relatives?: three or more times per week Do you belong to any clubs or organized social groups?: no Panel score (0-1 are the most socially isolated patients): 2 What type of physical activity do you participate in: walking, bicycling and other Details: Kayaking Duration: 60-90 minutes/day Frequency: daily Ayana/Moravian: No preference Special ayana needs: No Seatbelt use: always Helmet use: No Drive intox or ride w/intox transit mixer driver: No Do you feel safe at home: Yes Do you feel safe in your relationship?: Yes Exam Const General: cooperative Orientation: alert, awake and oriented x3 Resp Effort & Inspection: normal respiratory effort and able to speak in complete sentences Auscultation: clear to auscultation bilaterally Cardio Rate: regular rate Rhythm: regular rhythm Heart Sounds: S1 normal and S2 normal GI Palpation: soft, not firm, no guarding, no masses, no pulsatile masses, not rigid and tender (Diffuse nonfocal) Auscultation: normal bowel sounds Back/Spine/Pelvis Back: no CVA tenderness Neuro General: patient alert, patient awake, patient oriented x3, gait normal and moves all extremities Course Vital Signs Vital signs: Vital Signs Temperature 37.0 C 01/19/23 13:46 Pulse 78 01/19/23 13:46 Respiratory Rate 18 01/19/23 13:46 Blood Pressure 137/82 01/19/23 13:46 Pulse Oximetry 97 01/19/23 13:46 Temperature 37.0 C 01/19/23 13:46 Temperature Source Skin 01/19/23 13:46 Pulse 78 01/19/23 13:46 Respiratory Rate 18 01/19/23 13:46 Respiratory Effort Normal 01/19/23 13:50 Blood Pressure 137/82 01/19/23 13:46 Blood Pressure Position Sitting 01/19/23 13:46 Pulse Oximetry 97 01/19/23 13:46 Oxygen Delivery Method Room Air 01/19/23 13:46 Oxygen Flow Rate 0 01/19/23 13:46 Lab/Test Results Lab/Test Results: Laboratory Tests Range/Units 01/19/23 15:11 WBC (4.4-10.8) 10^3/uL 11.64 H RBC (4.36-5.78) 10^6/uL 5.03 Hgb (13.5-17.5) g/dL 16.6 Hct (40.0-50.0) % 47.2 MCV (80-95) fL 94 MCH (27.0-33.0) pg 33.0 MCHC (32.0-36.0) % 35.2 RDW (11.8-14.1) % 12.6 Plt Count (130-400) 10^3/uL 292 MPV (8.0-11.0) fL 9.4 Immature Gran % 0.4 Neutrophils % 85.9 Lymphocytes % 6.8 Monocytes % 6.5 Eosinophils % 0.1 Basophils % 0.3 Nucleated RBC % (0.0-0.3) % 0.0 Absolute Neutrophils (1.2-6.7) 10^3/uL 10.00 H Absolute Lymphocytes (1.2-3.4) 10^3/uL 0.79 L Absolute Monocytes (0.1-0.8) 10^3/uL 0.76 Absolute Eosinophils (0.0-0.7) 10^3/uL 0.01 Absolute Basophils (0.0-0.2) 10^3/uL 0.03
[2023-01-19] MEDS: Ondansetron 4 MG/2 ML VIAL IVP (15:29)
[2023-01-19] MEDS: Ketorolac 15 MG/ML VIAL IVP (15:29)
[2023-01-19 15:33] LABS: ALT 53 U/L (16-63); AST 30 U/L (15-37); Alkaline Phosphatase 147 U/L (46-116); Anion Gap 7.6 mmol/L (3-11); BUN 11 mg/dL (7-18); Bilirubin, Total 0.4 mg/dL (0.2-1.0); CO2 26.4 mmol/L (21.0-32.0); CREATININE 0.6 mg/dL (0.70-1.30); Calcium 9.5 mg/dL (8.5-10.1); Chloride 102 mmol/L (98-107); Estimated GFR 107.13 (mL/min/1.73m2); Glucose 127 mg/dL (74-106); Lipase 57 U/L (16-77); Magnesium 2.3 mg/dL (1.8-2.4); Potassium 3.8 mmol/L (3.5-5.1); Sodium 136 mmol/L (136-145); Total Protein 7.9 g/dL (6.4-8.2)
[2023-01-19] MEDS: Normal Saline - Diluent 50 ML VIAL IJ (15:45)
[2023-01-19] MEDS: Omnipaque 350 MG/ML 100 ML BTL IJ (15:48)
[2023-01-19] MEDS: Normal Saline Flush 10 ML SYR IVP (15:51)
--- NOTE | 2023-01-19 17:02 | DI.VRAD_ITS ---
Addendum created by Laurel Quintana MD on 01/19/2023 5:08:36 PM EDT: THIS REPORT CONTAINS FINDINGS THAT MAY BE CRITICAL TO PATIENT CARE. The findings were verbally communicated via telephone conference with EVIN Smith at 5:08 PM EDT on 01/19/2023. The findings were acknowledged and understood. Initial report created on 01/19/2023 5:01:39 PM EDT: PROCEDURE INFORMATION: Exam: CT Abdomen And Pelvis With Contrast Exam date and time: 01/19/2023 3:53 PM Age: 67 years old Clinical indication: Nausea and vomiting; Prior surgery; Surgery date: 6+ months; Surgery type: Hernia TECHNIQUE: Imaging protocol: Computed tomography of the abdomen and pelvis with contrast. Contrast material: OMNIPAQUE 350; Contrast volume: 100 ml; Contrast route: INTRAVENOUS (IV); COMPARISON: CT CHEST LUNG CANCER SCREEN 01/07/2023 9:22 AM FINDINGS: Lungs: Series 4, image 2 demonstrates a nonspecific 7 mm right pulmonary nodule, unchanged. There is a small hiatal hernia. Liver: There is some heterogeneity to the hepatic parenchyma with the right hepatic lobe slightly hypodense with respect to the left. This can sometimes be seen with asymmetric focal fat deposition. This can be further evaluated with MRI. Gallbladder and bile ducts: Normal. No calcified stones. No ductal dilation. Pancreas: Normal. No ductal dilation. Spleen: Normal. No splenomegaly. Adrenal glands: There are nodular densities in the left adrenal gland measuring up to 1.7 cm. These measure greater than 10 Hounsfield units, not fulfilling the criteria for adenomas.. Kidneys and ureters: Too small to characterize hypodensity in the left kidney. No hydronephrosis. Stomach and bowel: There is gastric wall prominence which can be seen with underdistention or gastritis. No evidence of bowel obstruction. There is some fluid in the colon which can be seen with diarrhea. There is some wall prominence to the sigmoid colon. Colonic diverticula are seen. There is irregular wall prominence to the rectum (series 5 image 674). Appendix: No evidence of appendicitis. Intraperitoneal space: Unremarkable. No free air. No significant fluid collection. Vasculature: There are vascular calcifications. Lymph nodes: Unremarkable. No enlarged lymph nodes. Urinary bladder: There is urinary bladder wall prominence. This can be seen with infection or underdistention. In some regions, the internal contents of the urinary bladder measure greater than water density. Components of blood or infection are not excluded. Reproductive: Mildly heterogeneous prostate. Bones/joints: Skeletal degenerative changes. Multilevel disc space narrowing in the spine. Probable vacuum disc phenomenon at L4-L5. Soft tissues: Left inguinal hernia containing fat. IMPRESSION: 1. Gastric wall prominence which can be seen with underdistention or gastritis. There is also some fluid in the colon which can be seen with diarrhea. There is some wall prominence to the sigmoid colon. Findings should be correlated with any concern for colitis. 2. There is urinary bladder wall prominence. This can be seen with infection or underdistention. In some regions, the internal contents of the urinary bladder measure greater than water density. Components of blood or infection are not excluded. 3. Findings in the liver and left adrenal gland as described. A dedicated MRI, adrenal/hepatic mass protocol is recommended. 4. Some irregular wall prominence to the rectum. Findings can be seen with proctitis or pathology. GI consult recommended for appropriate assessment. 5. Nonspecific 7 mm right pulmonary nodule, unchanged. Other findings/details as above. Dictated and Authenticated by: Laurel Quintana MD. Ordering:KILEY Gaxiola MD
--- NOTE | 2023-01-19 17:08 | ED.GENADUL_ITS ---
Discharge Plan Disposition Patient Disposition: Eloped Discharge Details Clinical Impression: Nausea & vomiting, Abdominal pain Primary Care Provider: Haydee Donahue ED Provider: Minor Fonseca Home Meds and New Rx's Prescriptions: No Action garlic 500 mg capsule 500 mg PO DAILY ibuprofen 600 mg tablet 600 mg PO QID PRN (Reason: pain) Qty: 90 1RF Hold Instructions: Changed by Provider Rx Instructions: take with food zinc 50 MG tablet 50 mg PO DAILY cholecalciferol (vitamin D3) [Vitamin D3] 400 UNIT tablet 1 tab PO DAILY vitamin E 400 UNIT capsule 400 unit PO DAILY vitamin B complex 1 EACH capsule 1 tab PO DAILY Medical Decision Making while awaiting CT reading was notified that patient pulled his IV out and left the department HPI General Mode of arrival: ambulatory . Date/Time Provider Initiated Documentation: 01/19/23 14:25 . Limitations to Documentation: no limitations . Information obtained by: patient and RN notes reviewed . History of Present Illness Quality is described as sharp, and is localized to the abdomen. No relieving factors improve symptom(s), Patient did receive the following treatments prior to arrival, none Related Data Home Medications Medication Instructions Recorded Confirmed cholecalciferol (vitamin D3) 10 1 tab PO DAILY 04/18/14 01/19/23 mcg (400 unit) tablet (Vitamin D3) vitamin B complex 1 tab PO DAILY 04/18/14 01/19/23 vitamin E 268 mg (400 unit) capsule 400 unit PO DAILY 04/18/14 01/19/23 zinc 50 mg tablet 50 mg PO DAILY 04/18/14 01/19/23 garlic 500 mg capsule 500 mg PO DAILY 07/05/21 01/19/23 ibuprofen 600 mg tablet 600 mg PO QID PRN pain #90 tabs 06/21/22 01/19/23 Previous Rx's Medication Instructions Recorded ibuprofen 600 mg tablet 600 mg PO QID PRN pain #90 tabs 06/21/22 Allergies Allergy/AdvReac Type Severity Reaction Status Date / Time codeine AdvReac Intermediate NAUSEA Verified 01/19/23 13:51 General Stated Complaint: Nausea/Vomit/Diar MEENU: 3 PFSH All Active Problems Abdominal pain (Acute) Nausea & vomiting (Acute) Elevated alkaline phosphatase level (Acute) Obesity (Chronic) Diverticulosis of colon (Chronic) Former cigarette smoker (Chronic) Medical History Tubular adenoma of colon Surgical History S/P colonoscopy S/P left inguinal hernia repair (03/21/21) S/P right inguinal hernia repair (05/29/17) Status post de Quervain's release surgery (04/20/14) Status post repair of hydrocele Family History Mother , 94 Depression Stroke Heart disease COPD (chronic obstructive pulmonary disease) Father , 94 Depression Prostate cancer Dementia Sister No problems noted. Sister No problems noted. Brother Prostate cancer Diabetes Brother No problems noted. Brother , 57 of [place] Alcohol use disorder Heart disease Myocardial infarction Maternal Grandfather , 58 Lung cancer Paternal Grandfather , 63 No problems noted. Maternal Grandmother , 95 No problems noted. Paternal Grandmother , 62 No problems noted. Social History Smoking/Tobacco Use Status: Former Tobacco Use tobacco type: cigarettes and pipe Quit Date: 07/01/21 Pack-years: 45 Tobacco: How many years used: 45 Second Hand Exposure: Yes Smoking risk assessment performed?: Yes Alcohol Intake: current Alcohol Intake frequency: a few times a week Alcohol type: beer Drug use: Occasionally Substance use type: marijuana Caregiver/Support person: No Household members: spouse Housing: house Communication Needs: None Do you need help understanding health information?: Never Pets and animals: Yes Pets and animals: dog(s), horse(s) and farm animals Sexually active: Yes Do you think of yourself as: straight/heterosexual Current gender identity: male What is your relationship status?: How often do you talk on the phone with friends or family?: three or more times per week How often do you get together with friends or relatives?: three or more times per week Do you belong to any clubs or organized social groups?: no Panel score (0-1 are the most socially isolated patients): 2 What type of physical activity do you participate in: walking, bicycling and other Details: Kayaking Duration: 60-90 minutes/day Frequency: daily Ayana/Sikh: No preference Special ayana needs: No Seatbelt use: always Helmet use: No Drive intox or 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 Do you feel safe at home: Yes Do you feel safe in your relationship?: Yes Course Vital Signs Vital signs: Vital Signs Temperature 37.0 C 01/19/23 13:46 Pulse 78 01/19/23 13:46 Respiratory Rate 18 01/19/23 13:46 Blood Pressure 137/82 01/19/23 13:46 Pulse Oximetry 97 01/19/23 13:46 Temperature 37.0 C 01/19/23 13:46 Temperature Source Skin 01/19/23 13:46 Pulse 78 01/19/23 13:46 Respiratory Rate 18 01/19/23 13:46 Respiratory Effort Normal 01/19/23 13:50 Blood Pressure 137/82 01/19/23 13:46 Blood Pressure Position Sitting 01/19/23 13:46 Pulse Oximetry 97 01/19/23 13:46 Oxygen Delivery Method Room Air 01/19/23 13:46 Oxygen Flow Rate 0 01/19/23 13:46 Lab/Test Results Lab/Test Results: Laboratory Tests Range/Units 01/19/23 15:11 WBC (4.4-10.8) 10^3/uL 11.64 H RBC (4.36-5.78) 10^6/uL 5.03 Hgb (13.5-17.5) g/dL 16.6 Hct (40.0-50.0) % 47.2 MCV (80-95) fL 94 MCH (27.0-33.0) pg 33.0 MCHC (32.0-36.0) % 35.2 RDW (11.8-14.1) % 12.6 Plt Count (130-400) 10^3/uL 292 MPV (8.0-11.0) fL 9.4 Immature Gran % 0.4 Neutrophils % 85.9 Lymphocytes % 6.8 Monocytes % 6.5 Eosinophils % 0.1 Basophils % 0.3 Nucleated RBC % (0.0-0.3) % 0.0 Absolute Neutrophils (1.2-6.7) 10^3/uL 10.00 H Absolute Lymphocytes (1.2-3.4) 10^3/uL 0.79 L Absolute Monocytes (0.1-0.8) 10^3/uL 0.76 Absolute Eosinophils (0.0-0.7) 10^3/uL 0.01 Absolute Basophils (0.0-0.2) 10^3/uL 0.03 Sodium (136-145) mmol/L 136 Potassium (3.5-5.1) mmol/L 3.8 Chloride (98-107) mmol/L 102 Carbon Dioxide (21.0-32.0) mmol/L 26.4 Anion Gap (3-11) mmol/L 7.6 BUN (7-18) mg/dL 11 Creatinine (0.70-1.30) mg/dL 0.6 L Est GFR (CKD-EPI 2020) (mL/min/1.73m2) 107.13 Glucose (74-106) mg/dL 127 H Calcium (8.5-10.1) mg/dL 9.5 Magnesium (1.8-2.4) mg/dL 2.3 Total Bilirubin (0.2-1.0) mg/dL 0.4 AST (15-37) U/L 30 ALT (16-63) U/L 53 Alkaline Phosphatase (46-116) U/L 147 H Total Protein (6.4-8.2) g/dL 7.9 Albumin (3.4-5.0) g/dL 4.0 Lipase (16-77) U/L 57
== END 2023-01-19 17:35 | disposition left against medical advice (07) ==
PROVIDERS: Emergency Provider Nurse Practitioner Family; PCP Nurse Practitioner Family
DX: R11.2 Nausea with vomiting, unspecified (principal); R19.7 Diarrhea, unspecified; K57.30 Diverticulosis of large intestine without perforation or abscess without bleeding; Z87.891 Personal history of nicotine dependence; Z53.20 Procedure and treatment not carried out because of patient's decision for unspecified reasons
CPT/HCPCS: 36415; 80053; 83690; 96361; 96372; 96374; 96375; 99284; 99285; 74177; 83735; 85025; 99283; J0131; J1885; J2270; J2405; J3490

== ENCOUNTER 2023-01-19 21:42 | Emergency (ER) | payer MEDICARE, SELFPAY ==
[2023-01-19] VITALS (7 sets, daily range): BP systolic 172–186; BP diastolic 84–91; PULSE 67–90; RESP 16–18; TEMP 36.7–36.9; O2SAT 90–98
[2023-01-19] MEDS: Amoxicillin 875/Clav. 125 TAB PO (22:31)
[2023-01-19] MEDS: Dicyclomine 20 MG TAB PO (22:31)
[2023-01-19] MEDS: MORPHine 10 MG/ML VIAL 6 MG IM (22:33)
[2023-01-19] MEDS: Ondansetron O.D.T. 4 MG TABEF PO (22:34)
--- NOTE | 2023-01-19 23:02 | W.ED.GENAD ---
Discharge Plan Disposition Patient Disposition: Home Condition: Good Discharge Details Clinical Impression: Adrenal nodule, Colitis Primary Care Provider: Haydee Donahue ED Provider: Rafat John Home Meds and New Rx's Prescriptions: New amoxicillin-pot clavulanate 875-125 mg tablet 1 tab PO BID Qty: 20 0RF dicyclomine 10 mg capsule 10 mg PO BID Qty: 20 0RF No Action garlic 500 mg capsule 500 mg PO DAILY ibuprofen 600 mg tablet 600 mg PO QID PRN (Reason: pain) Qty: 90 1RF Hold Instructions: Changed by Provider Rx Instructions: take with food zinc 50 MG tablet 50 mg PO DAILY cholecalciferol (vitamin D3) [Vitamin D3] 400 UNIT tablet 1 tab PO DAILY vitamin E 400 UNIT capsule 400 unit PO DAILY vitamin B complex 1 EACH capsule 1 tab PO DAILY magnesium chloride PO Rx Instructions: Self prescribed Discharge Instructions Instructions: Colitis (ED) Additional Instructions: At this time you have evidence of mild colitis. Please take the antibiotic as directed for treatment of this. Please take the Bentyl as needed. This prescription has been sent to your pharmacy. This can be used for pain. You have been given a few pain pills and if you Zofran nausea pills. Take these as needed. If you notice any worsening of your symptoms, or any new symptoms such as vomiting, diarrhea, fever, chills, shortness of breath, chest pain, numbness, weakness, or fainting , please return immediately to the emergency department for reevaluation. Please follow up with your primary care provider as soon as possible for reassessment and reevaluation. As always, it was a pleasure participating in your medical care today. Additionally you do have a small nodule that was noted on your adrenal glands. Please follow-up with your primary care provider for rediscussion of this and potential repeat imaging. Referrals: Haydee Donahue NP [Primary Care Provider] - Discharge Data Discharge Date/Time-TO BE ENTERED AT DEPARTURE: 01/19/23 23:08 Medical Decision Making This is a 67-year-old male with a past medical history of bilateral inguinal hernia surgery, who presents today for abdominal pain. Patient was seen and assessed here earlier today. He was initially seen by Minor Fonseca who performed what appears to be a notably appropriate work-up of laboratory evaluation and CT imaging of the abdomen for symptoms of abdominal pain with some diarrhea and vomiting. Patient was then signed out to Martina Suggs for follow-up on CT imaging. Unfortunately the patient stated that he needed to get home to take care of some animals, and so he took his IV out on his own, and left AGAINST MEDICAL ADVICE before the work-up was complete. He returns at 10 PM for continued abdominal pain. He denies any change of his symptoms otherwise. He states that his pain was resolved while in the emergency department but returned after he went back home. No vomiting or diarrhea since then. No other complaints at this time. The patient states that his abdominal pain is still present in the generalized abdominal regions. Exam demonstrates no reproducible pain though on palpation of the abdomen. No evidence of an acute surgical abdomen whatsoever. No evidence to suggest acute mesenteric ischemia. The patient's laboratory work-up showed evidence of negative urinalysis, minimal white count at 11.6, normal electrolytes. CT scan results upon my review demonstrate evidence of enteritis, as well as some prominence of the sigmoid colon concerning for colitis. Read from virtual radiology suggest some rectal fullness, however read from in-house radiologist does not describe this. Out of an abundance of precaution we we will treat the patient with Augmentin for mild colitis. Since he has no fever, minimal white count, and no evidence of severe colitis we will hold off on treatment with Cipro/Flagyl. Bentyl was given, IM morphine was given, and Zofran was given. Patient had complete resolution of his symptoms. Patient otherwise feels well on reassessment after observation for an hour and a half. Patient stable for discharge. We will give a few Roxicodone's for home use, recommend continued Zofran and NSAIDs as needed as well as a bland diet. Discussed red flags for which to return. I have extensively reviewed the treatment plan and discharge instructions with the patient. I have addressed all patient concerns at this time. The patient was made aware of what symptoms to monitor for that would warrant a return to the emergency department. Discussed the plan with the patient, they demonstrate verbal understanding and agreement with our assessment and plan at this time. The documentation in this chart was dictated using [employer] dictation software. Please excuse any dictation errors. FINDINGS: Lungs: Series 4, image 2 demonstrates a nonspecific 7 mm right pulmonary nodule, unchanged. There is a small hiatal hernia. Liver: There is some heterogeneity to the hepatic parenchyma with the right hepatic lobe slightly hypodense with respect to the left. This can sometimes be seen with asymmetric focal fat deposition. This can be further evaluated with MRI. Gallbladder and bile ducts: Normal. No calcified stones. No ductal dilation. Pancreas: Normal. No ductal dilation. Spleen: Normal. No splenomegaly. Adrenal glands: There are nodular densities in the left adrenal gland measuring up to 1.7 cm. These measure greater than 10 Hounsfield units, not fulfilling the criteria for adenomas.. Kidneys and ureters: Too small to characterize hypodensity in the left kidney. No hydronephrosis. Stomach and bowel: There is gastric wall prominence which can be seen with underdistention or gastritis. No evidence of bowel obstruction. There is some fluid in the colon which can be seen with diarrhea. There is some wall prominence to the sigmoid colon. Colonic diverticula are seen. There is irregular wall prominence to the rectum (series 5 image 674). Appendix: No evidence of appendicitis. Intraperitoneal space: Unremarkable. No free air. No significant fluid collection. Vasculature: There are vascular calcifications. Lymph nodes: Unremarkable. No enlarged lymph nodes. Urinary bladder: There is urinary bladder wall prominence. This can be seen with infection or underdistention. In some regions, the internal contents of the urinary bladder measure greater than water density. Components of blood or infection are not excluded. Reproductive: Mildly heterogeneous prostate. Bones/joints: Skeletal degenerative changes. Multilevel disc space narrowing in the spine. Probable vacuum disc phenomenon at L4-L5. Soft tissues: Left inguinal hernia containing fat. IMPRESSION: 1. Gastric wall prominence which can be seen with underdistention or gastritis. There is also some fluid in the colon which can be seen with diarrhea. There is some wall prominence to the sigmoid colon. Findings should be correlated with any concern for colitis. 2. There is urinary bladder wall prominence. This can be seen with infection or underdistention. In some regions, the internal contents of the urinary bladder measure greater than water density. Components of blood or infection are not excluded. 3. Findings in the liver and left adrenal gland as described. A dedicated MRI, adrenal/hepatic mass protocol is recommended. 4. Some irregular wall prominence to the rectum. Findings can be seen with proctitis or pathology. GI consult recommended for appropriate assessment. 5. Nonspecific 7 mm right pulmonary nodule, unchanged. Other findings/details as above. Thank you for allowing us to participate in the care of your patient. Dictated and Authenticated by: Laurel Quintana MD 01/19/2023 5:01 PM Eastern Time ([place] & [place]) HPI General Date/Time Provider Initiated Documentation: 01/19/23 21:44. HPI Narrative: This is a 67-year-old male with a past medical history of bilateral inguinal hernia surgery, who presents today for abdominal pain. Patient was seen and assessed here earlier today. He was initially seen by Minor Fonseca who performed what appears to be a notably appropriate work-up of laboratory evaluation and CT imaging of the abdomen for symptoms of abdominal pain with some diarrhea and vomiting. Patient was then signed out to Martina Suggs for follow-up on CT imaging. Unfortunately the patient stated that he needed to get home to take care of some animals, and so he took his IV out on his own, and left AGAINST MEDICAL ADVICE before the work-up was complete. He returns at this time for continued abdominal pain. He denies any change of his symptoms otherwise. He states that his pain was resolved while in the emergency department but returned after he went back home. No vomiting or diarrhea since then. No other complaints at this time. Related Data Home Medications Medication Instructions Recorded Confirmed cholecalciferol (vitamin D3) 10 1 tab PO DAILY 04/18/14 01/19/23 mcg (400 unit) tablet (Vitamin D3) vitamin B complex 1 tab PO DAILY 04/18/14 01/19/23 vitamin E 268 mg (400 unit) capsule 400 unit PO DAILY 04/18/14 01/19/23 zinc 50 mg tablet 50 mg PO DAILY 04/18/14 01/19/23 garlic 500 mg capsule 500 mg PO DAILY 07/05/21 01/19/23 ibuprofen 600 mg tablet 600 mg PO QID PRN pain #90 tabs 06/21/22 01/19/23 amoxicillin 875 mg-potassium 1 tab PO BID #20 tabs 01/19/23 clavulanate 125 mg tablet dicyclomine 10 mg capsule 10 mg PO BID #20 caps 01/19/23 magnesium chloride PO Supplement 01/19/23 Previous Rx's Medication Instructions Recorded ibuprofen 600 mg tablet 600 mg PO QID PRN pain #90 tabs 06/21/22 amoxicillin 875 mg-potassium 1 tab PO BID #20 tabs 01/19/23 clavulanate 125 mg tablet dicyclomine 10 mg capsule 10 mg PO BID #20 caps 01/19/23 Allergies Allergy/AdvReac Type Severity Reaction Status Date / Time codeine AdvReac Intermediate NAUSEA Verified 01/19/23 22:11 General Stated Complaint: Abd Prob MEENU: 3 Review of Systems All systems reviewed & are unremarkable except as noted in HPI and below PFSH All Active Problems Colitis (Acute) Adrenal nodule (Acute) Abdominal pain (Acute) Nausea & vomiting (Acute) Elevated alkaline phosphatase level (Acute) Obesity (Chronic) Diverticulosis of colon (Chronic) Former cigarette smoker (Chronic) Medical History Tubular adenoma of colon Surgical History S/P colonoscopy S/P left inguinal hernia repair (03/21/21) S/P right inguinal hernia repair (05/29/17) Status post de Quervain's release surgery (04/20/14) Status post repair of hydrocele Family History Mother , 94 Depression Stroke Heart disease COPD (chronic obstructive pulmonary disease) Father , 94 Depression Prostate cancer Dementia Sister No problems noted. Sister No problems noted. Brother Prostate cancer Diabetes Brother No problems noted. Brother , 57 of [place] Alcohol use disorder Heart disease Myocardial infarction Maternal Grandfather , 58 Lung cancer Paternal Grandfather , 63 No problems noted. Maternal Grandmother , 95 No problems noted. Paternal Grandmother , 62 No problems noted. Social History Smoking/Tobacco Use Status: Former Tobacco Use tobacco type: cigarettes and pipe Quit Date: 07/01/21 Pack-years: 45 Tobacco: How many years used: 45 Second Hand Exposure: Yes Smoking risk assessment performed?: Yes Alcohol Intake: current Alcohol Intake frequency: a few times a week Alcohol type: beer Drug use: Occasionally Substance use type: marijuana Caregiver/Support person: No Household members: spouse Housing: house Communication Needs: None Do you need help understanding health information?: Never Pets and animals: Yes Pets and animals: dog(s), horse(s) and farm animals Sexually active: Yes Do you think of yourself as: straight/heterosexual Current gender identity: male What is your relationship status?: How often do you talk on the phone with friends or family?: three or more times per week How often do you get together with friends or relatives?: three or more times per week Do you belong to any clubs or organized social groups?: no Panel score (0-1 are the most socially isolated patients): 2 What type of physical activity do you participate in: walking, bicycling and other Details: Kayaking Duration: 60-90 minutes/day Frequency: daily Ayana/Amish: No preference Special ayana needs: No Seatbelt use: always Helmet use: No 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 3.ENT: Atraumatic external nose and ears. Moist MM. Neck: Symmetric, trachea midline, No thyromegaly. 4.CVS: +S1/S2, No murmurs or gallops. Peripheral pulses 2+ and equal in all extremities. Brisk capillary refill in all extremities. 5.RESP: Unlabored respiratory effort. Clear to auscultation bilaterally. No wheezes rales or rhonchi 6.GI: Soft, Nontender/Nondistended, No hepatosplenomegaly. No guarding or rebound. 7.MSK: Normocephalic/Atraumatic, Extremities w/o deformity or ttp No cyanosis or clubbing, Normal movement of all extremities 8.Skin: Warm, Dry. No rashes or lesions. 9.Neuro: seismic engineer II-XII grossly intact. Sensation grossly intact, no focal neurologic deficits. 10.Psych: (AAO) x3. Appropriate mood and affect Course Vital Signs Vital signs: Vital Signs Temperature 36.7 C 01/19/23 21:45 Pulse 67 01/19/23 21:45 Respiratory Rate 18 01/19/23 21:45 Blood Pressure 172/88 H 01/19/23 21:45 Pulse Oximetry 96 01/19/23 21:45 Temperature 36.9 C 01/19/23 22:38 Temperature Source Oral 01/19/23 22:38 Pulse 68 01/19/23 22:38 Respiratory Rate 18 01/19/23 22:38 Respiratory Effort Normal 01/19/23 21:50 Blood Pressure 186/88 H 01/19/23 22:38 Blood Pressure Position Supine 01/19/23 22:38 Pulse Oximetry 94 01/19/23 22:38 Oxygen Delivery Method Room Air 01/19/23 22:38 Oxygen Flow Rate 0 01/19/23 21:45 Pain Level 6 01/19/23 22:38
[2023-01-19] MEDS: Ondansetron O.D.T. 4 MG TABEF, 3 TABS/BTL PO (23:05)
== END 2023-01-19 23:08 | disposition home or self-care (01) ==
PROVIDERS: Emergency Provider Student in an Organized Health Care Education/Training Program; PCP Nurse Practitioner Family
DX: E27.8 Other specified disorders of adrenal gland; K21.9 Gastro-esophageal reflux disease without esophagitis; Z98.890 Other specified postprocedural states; R10.84 Generalized abdominal pain; K44.9 Diaphragmatic hernia without obstruction or gangrene; R91.1 Solitary pulmonary nodule; R93.422 Abnormal radiologic findings on diagnostic imaging of left kidney; R93.41 Abnormal radiologic findings on diagnostic imaging of renal pelvis, ureter, or bladder
CPT/HCPCS: 36415; 96372; 99284; J2270

== ENCOUNTER → 2023-08-22 01:04 | Outpatient (CLI) | payer MEDICARE, SELFPAY ==
--- NOTE | 2023-08-22 10:17 | DI.RAD_ITS ---
Exam(s) XR KNEE LT 3V AP,LAT,CAPO EXAM: XR KNEE LT 3V AP,LAT,CAPO CLINICAL HISTORY: M25.562 pain in left knee. TECHNIQUE: 2D digital imaging was performed. Three views. COMPARISON: MR MRI R LOWER JOINT WO CONT from 09/15/2014 FINDINGS: BONES: No acute fracture is present. No bony destructive lesion is seen. JOINTS: The knee is normally aligned. No joint effusion is seen. SOFT TISSUE: Normal. IMPRESSION: Normal radiographs of the left knee. DATA REPOSITORY: RADIATION DOSE DELIVERED:
== END ==
PROVIDERS: PCP Nurse Practitioner Family; Visit Provider Emergency Medicine Emergency Medical Services
DX: M25.562 Pain in left knee (principal)
CPT/HCPCS: 73562

== ENCOUNTER 2024-01-09 00:44 | Outpatient (CLI) | payer MEDICARE, SELFPAY ==
--- NOTE | 2024-01-09 06:30 | DI.US_ITS ---
Exam(s) US AAA SCREENING EXAM: US AAA SCREENING CLINICAL HISTORY: H/O smoking,screening for aaa,z72.0 COMPARISON: US US OR ANESTHESIA from 03/21/2021 FINDINGS: No evidence of abdominal aortic aneurysm. Maximum diameter the abdominal aorta is 2.4 cm proximally with normal distal aortic tapering evident. Visualized common iliac arteries also exhibit normal stewart meters. IMPRESSION: No evidence of abdominal aortic aneurysm. DATA REPOSITORY:
--- NOTE | 2024-01-09 07:37 | DI.CTLCSR_ITS ---
Exam(s) CT CHEST LUNG CANCER SCREEN EXAM: CT CHEST LUNG CANCER SCREEN CLINICAL HISTORY: Screening for lung cancer,former smoker, z87.891. TECHNIQUE: Imaging Protocol: Low Dose Technique CONTRAST MATERIAL: None COMPARISON: CT CT CHEST LUNG CANCER SCREEN from 01/07/2023 FINDINGS: CHEST: LUNGS: Emphysematous changes again noted bilaterally.. Mild subpleural scarring in the right upper l obe lateral aspect is unchanged. Previously described 6 millimeter nodule in the right lower lobe is unchanged. Also unchanged is a 6 millimeter nodule in the lateral segment the right middle lobe. S ome scarring in the posterior basal segment the right lower lobe is unchanged. No new right lung nod ules. In the opposite-left lung there is a pleural based nodule in the lingular segment appearing un changed, measuring 7 mm. There are no new nodules in either lung field. No infiltrates nor pleural effusions. No significant findings in the trachea and mainstem bronchi. MEDIASTINUM: There is no obvious hilar nor mediastinal adenopathy. CARDIAC: Heart size is normal. There is no pericardial effusion.Caliber of the thoracic aorta is wit hin normal limits. OTHER: OSSEOUS: No significant osseous lesions.. IMPRESSION: 1. Previously described bilateral pulmonary nodules remain stable. There are no new pulmonary nodule s. 2. No new infiltrates nor pleural effusions nor intrathoracic adenopathy. 3. Lung RADS Cat 2 - Benign Appearance / Behavior: Nodules with a very low likelihood of becoming a c linically active cancer due to size or lack of growth Lung-RADS 1.0 CATEGORIES: Category 0 - Prior chest CT exam(s) being located for comparison. Category 1 - Annual screening in 12 months. No nodules or definitely benign nodules. Category 2 - Annual screening in 12 months. Benign appearance. Nodules with low likelihood of becomin g active cancer. Category 3 - 6-month follow-up. Probably benign. Short-term follow-up suggested. Nodules with low lik elihood of becoming active cancer. Category 4A - 3-month follow-up and CT/PET if >8 mm in size. Suspicious finding. Findings which requi re additional testing. Category 4B - Findings which require additional testing and tissue sampling. Category 4X - Category 3 or 4 nodules with additional features or imaging findings that increases the suspicion of malignancy. Modifier S- Potentially clinically significant findings (non lung cancer) RADIATION DOSE DELIVERED: 38.11mGy.cm Total DLP DATA REPOSITORY: All CT scans at this facility are submitted to the National Radiology Data Registry (NRDR) Dose Index Registry (DIR) with the [employer] (ACR). RADIATION OPTIMIZATION: All CT scans at this facility use at least one of these dose optimization te chniques: automated exposure control; mA and/or kV adjustment per patient size (includes targeted exa ms where dose is matched to clinical indication); or iterative reconstruction.
== END 2024-01-09 01:04 ==
LOC: DI 00:45
PROVIDERS: PCP Nurse Practitioner Family; Visit Provider Nurse Practitioner Family
DX: Z87.891 Personal history of nicotine dependence (principal); Z12.2 Encounter for screening for malignant neoplasm of respiratory organs; Z13.6 Encounter for screening for cardiovascular disorders; R91.1 Solitary pulmonary nodule
CPT/HCPCS: 71271; 76706

== ENCOUNTER 2024-01-09 02:14 | Outpatient (CLI) | payer MEDICARE, SELFPAY ==
[2024-01-09 08:40] LABS: Hemoglobin A1C 5.6 % (<5.7)
[2024-01-09 09:07] LABS: ALT 27 U/L (16-63); AST 21 U/L (15-37); Albumin 3.5 g/dL (3.4-5.0); Alkaline Phosphatase 143 U/L (46-116); Anion Gap 8.2 mmol/L (3-11); BUN 10 mg/dL (7-18); Bilirubin, Total 0.39 mg/dL (0.2-1.0); CO2 26.8 mmol/L (21.0-32.0); CREATININE 0.6 mg/dL (0.70-1.30); Calcium 9.1 mg/dL (8.5-10.1); Calculated LDL 95 mg/dL (<100); Chloride 107 mmol/L (98-107); Cholesterol 187 mg/dL (<200); Estimated GFR 106.46 (mL/min/1.73m2); Glucose 116 mg/dL (74-106); HDL Cholesterol 82 mg/dL (40-60); Potassium 4.2 mmol/L (3.5-5.1); Sodium 142 mmol/L (136-145); TSH (W/Ref FT4) 1.09 uIU/mL (0.36-3.74); Total Protein 6.9 g/dL (6.4-8.2); Triglyceride 53 mg/dL (<150)
[2024-01-09 19:06] LABS: PSA, Screening 1.5 ng/mL (<=4.5)
== END 2024-01-09 02:15 | disposition home or self-care (01) ==
LOC: LBO 02:14
PROVIDERS: PCP Nurse Practitioner Family; Visit Provider Nurse Practitioner Family
DX: Z12.5 Encounter for screening for malignant neoplasm of prostate (principal); E66.9 Obesity, unspecified; Z00.00 Encounter for general adult medical examination without abnormal findings; K76.0 Fatty (change of) liver, not elsewhere classified; R74.8 Abnormal levels of other serum enzymes; Z87.891 Personal history of nicotine dependence; R73.03 Prediabetes
CPT/HCPCS: 36415; 71271; 76706; 80053; 80061; 84153; 83036; 84443

== ENCOUNTER 2024-09-10 00:23 | Outpatient (CLI) | payer MEDICARE, OTHER, SELFPAY ==
--- NOTE | 2024-09-10 14:17 | DI.RAD_ITS ---
Exam(s) XR SHOULDER LT COMPLETE 2+V EXAM: XR SHOULDER LT COMPLETE 2+V CLINICAL HISTORY: eval pathology,LT SHOULDER PAIN,M25.512. TECHNIQUE: 2D digital imaging was performed. COMPARISON: No exams were available for comparison FINDINGS: Five views No evidence of fracture or dislocation nor diminution of the subacromial space. However, there are multiple small calcific densities in the soft tissue just above the greater tuberosity of the lateral humeral head indicating calcific rotator cuff tendinitis. There are no obvious degenerative changes in the glenohumeral joint. Some degenerative change in the AC joint is noted. Bone density normal. No osseous lesions. IMPRESSION: Findings are consistent with calcific rotator cuff tendinitis. There are degenerative changes in the AC joint noted DATA REPOSITORY: RADIATION DOSE DELIVERED:
== END 2024-09-10 00:43 ==
PROVIDERS: PCP Nurse Practitioner Family; Visit Provider Nurse Practitioner Family
DX: M75.32 Calcific tendinitis of left shoulder (principal)
CPT/HCPCS: 73030

== ENCOUNTER 2025-02-01 00:59 | Outpatient (CLI) | payer MEDICARE, OTHER, SELFPAY ==
[2025-02-01] MEDS: Inhaler, Assist Device 1 EACH MC (12:04)
[2025-02-01] MEDS: Levalbuterol HFA 15 GM INH 4 PUFF IH (12:04)
--- NOTE | 2025-02-02 08:13 | W.PFT ---
Date of service: 02/01/25 Time of Service: 10:01 Pulmonary Function Test Result Indications: Dyspnea on exertion Impression 1. Good patient effort was noted. ATS standards for reproducibility were met. 2. Spirometry showed mild obstructive lung disease with an FEV1 of 84% (2.25 L) 3. Following the administration of a bronchodilator there was not a significant response 4. TLC was normal. No evidence of restrictive lung disease 5. DLCO was normal at 104% predicted
== END 2025-02-01 01:00 | disposition home or self-care (01) ==
LOC: RT 00:59
PROVIDERS: PCP Nurse Practitioner Family; Visit Provider Nurse Practitioner Family
DX: R06.09 Other forms of dyspnea (principal); Z87.891 Personal history of nicotine dependence; J44.9 Chronic obstructive pulmonary disease, unspecified
CPT/HCPCS: 94060; 94726; 94729

== ENCOUNTER → 2025-02-15 02:03 | Outpatient (CLI) | payer MEDICARE, OTHER, SELFPAY ==
--- NOTE | 2025-02-15 06:45 | DI.CTLCSR_ITS ---
Exam(s) CT CHEST LUNG CANCER SCREEN EXAM: CT CHEST LUNG CANCER SCREEN CLINICAL HISTORY: Screening for lung cancer,[employer], Z87.891 TECHNIQUE: Imaging Protocol: Axial computed tomography images with coronal and sagittal reformatted images were created and reviewed. Low dose screening protocol. COMPARISON: CT CT CHEST LUNG CANCER SCREEN from 01/09/2024 FINDINGS: Tracheobronchial tree: No bronchiectasis or mucus plugging. Mediastinum and Crista: No dominant adenopathy or fluid collection. Pulmonary parenchyma: No consolidation or dominant measurable mass. [id number] emphysematous changes, greater in the upper lobes.. Stable scarring right lung base. Stable area of scarring laterally in the right upper lobe. Lung Nodules: No new nodules. Right: Stable 6 millimeter nodule laterally in the right middle lobe. Stable 6 millimeter nodule right lower lobe. Left: 7 millimeter pleural based nodule in the lingula, stable. Pleura: No effusion. No pneumothorax. Heart: The heart is not dilated. Mild coronary artery calcifications are seen. No pericardial effusion. Aorta: Thoracic aorta non-dilated. Upper abdomen: Unremarkable. Bones: Bones appear osteopenic. There are flowing anterior syndesmophytes. Compression fractures. Soft Tissues: Unremarkable. IMPRESSION: No suspicious pulmonary nodules. Lung RADS Cat 2 - Benign Appearance / Behavior: Nodules with a very low likelihood of becoming a clinically active cancer due to size or lack of growth Lung-RADS 1.0 CATEGORIES: Category 0 - Prior chest CT exam(s) being located for comparison. Category 1 - Annual screening in 12 months. No nodules or definitely benign nodules. Category 2 - Annual screening in 12 months. Benign appearance. Nodules with low likelihood of becoming active cancer. Category 3 - 6-month follow-up. Probably benign. Short-term follow-up suggested. Nodules with low likelihood of becoming active cancer. Category 4A - 3-month follow-up and CT/PET if >8 mm in size. Suspicious finding. Findings which require additional testing. Category 4B - Findings which require additional testing and tissue sampling. Category 4X - Category 3 or 4 nodules with additional features or imaging findings that increases the suspicion of malignancy. Modifier S- Potentially clinically significant findings (non lung cancer) RADIATION DOSE DELIVERED: 50.92mGy.cm Total DLP DATA REPOSITORY: All CT scans at this facility are submitted to the National Radiology Data Registry (NRDR) Dose Index Registry (DIR) with the [employer] ([employer]). RADIATION OPTIMIZATION: All CT scans at this facility use at least one of these dose optimization techniques: automated exposure control; mA and/or kV adjustment per patient size (includes targeted exams where dose is matched to clinical indication); or iterative reconstruction.
== END ==
LOC: DI 02:03
PROVIDERS: PCP Nurse Practitioner Family; Visit Provider Nurse Practitioner Family
DX: Z87.891 Personal history of nicotine dependence (principal)
CPT/HCPCS: 71271

== ENCOUNTER 2025-02-15 09:51 | Outpatient (CLI) | payer MEDICARE, OTHER, SELFPAY ==
[2025-02-15 10:14] LABS: HCT 43.5 % (40.0-50.0); HGB 15.2 g/dL (13.5-17.5); MCH 33.6 pg (27.0-33.0); MCHC 34.9 % (32.0-36.0); MCV 96 fL (80-95); MPV 9.7 fL (8.0-11.0); Platelet Count 276 10^3/uL (130-400); RBC 4.53 10^6/uL (4.36-5.78); RDW 12.3 % (11.8-14.1); RDW-SD 43.3 fL; WBC 7.60 10^3/uL (4.4-10.8)
[2025-02-15 10:50] LABS: ALT 31 U/L (10-49); AST 28 U/L (<34); Albumin 4.0 g/dL (3.4-5.0); Alkaline Phosphatase 152 U/L (46-116); Anion Gap 7 mmol/L (3-11); BUN 12 mg/dL (9-23); Bilirubin, Total 0.40 mg/dL (0.2-1.2); CO2 26.0 mmol/L (20.0-31.0); Calcium 8.8 mg/dL (8.3-10.6); Chloride 108 mmol/L (98-107); Glucose 113 mg/dL (74-106); Potassium 4.2 mmol/L (3.5-5.1); Sodium 141 mmol/L (136-145); Total Protein 6.5 g/dL (5.7-8.2)
[2025-02-16 14:23] LABS: PSA, Screening 1.5 ng/mL (<=4.5)
== END 2025-02-15 09:52 | disposition home or self-care (01) ==
LOC: LBO 09:51
PROVIDERS: PCP Nurse Practitioner Family; Visit Provider Nurse Practitioner Family
DX: K76.0 Fatty (change of) liver, not elsewhere classified (principal); Z12.5 Encounter for screening for malignant neoplasm of prostate
CPT/HCPCS: 36415; 71271; 80053; 84153; 85027